=== PATIENT | male | born 1950 | race Caucasian/White ===

== ENCOUNTER → 2016-06-14 | Outpatient (CLI) | payer OTHER ==
[~2016-06-14] MED LIST: ASCO500T3 PO; ASPI1TAB83 PO; LEVO75TA PO; LISI-461 PO; MULT-506 PO; NITR0.4S UT; PLV75 PO; ROSU40TA PO; VITA1TAB7 PO
[2016-06-14 13:32] LABS: ALT/SGPT 48 U/L (12-78); AST/SGOT 27 U/L (15-37); BLOOD UREA NITROGEN 17 mg/dl (7-18); BUN/CREATININE RATIO 14.2 (10-20); CALCIUM 8.6 mg/dl (8.5-10.1); CARBON DIOXIDE 27 mmol/L (21-32); CHLORIDE 108 mmol/L (98-107); GLUCOSE 101 mg/dl (70-99); POTASSIUM 4.7 mmol/L (3.5-5.1); SODIUM 142 mmol/L (136-145)
[2016-06-14 13:44] LABS: CHOLESTEROL 106 mg/dl (0-200); CHOLESTEROL/HDL RATIO 2.7; HDL CHOLESTEROL 40 mg/dl; LDL CHOLESTEROL CALCULATED 42 mg/dl; TRIGLYCERIDES 118 mg/dl (0-150); VERY LOW DENSITY LIPOPROT CALC 24 mg/dl
== END | disposition home or self-care (01) ==
LOC: C.LABMFLN 07:47
PROVIDERS: ATTEND Family Medicine
DX: E03.9 Hypothyroidism, unspecified (principal); E78.00 Pure hypercholesterolemia, unspecified; I10 Essential (primary) hypertension

== ENCOUNTER → 2016-12-30 | Outpatient (CLI) | payer OTHER, BC ==
[2016-12-30 13:34] LABS: AST/SGOT 20 U/L (15-37); BLOOD UREA NITROGEN 16 mg/dl (7-18); BUN/CREATININE RATIO 14.1 (10-20); CALCIUM 8.8 mg/dl (8.5-10.1); CARBON DIOXIDE 26 mmol/L (21-32); CHLORIDE 109 mmol/L (98-107); GLUCOSE 98 mg/dl (70-99); POTASSIUM 4.1 mmol/L (3.5-5.1); SODIUM 140 mmol/L (136-145)
[2016-12-30 13:44] LABS: ALT/SGPT 38 U/L (12-78); CHOLESTEROL 99 mg/dl (0-200); CHOLESTEROL/HDL RATIO 2.5; HDL CHOLESTEROL 40 mg/dl; LDL CHOLESTEROL CALCULATED 41 mg/dl; TRIGLYCERIDES 91 mg/dl (0-150); VERY LOW DENSITY LIPOPROT CALC 18 mg/dl
== END | disposition home or self-care (01) ==
LOC: C.LABMFLN 07:37
PROVIDERS: ATTEND Family Medicine
DX: E03.9 Hypothyroidism, unspecified (principal); E78.00 Pure hypercholesterolemia, unspecified; I10 Essential (primary) hypertension

== ENCOUNTER → 2017-02-15 | Outpatient (CLI) | payer OTHER, BC ==
[2017-02-15 18:02] LABS: URINE APPEARANCE CLEAR (CLEAR); URINE BILIRUBIN NEG (NEG); URINE COLOR DK YELLOW; URINE NITRITE NEG (NEG); URINE PH 6.5 (4.5-7.5); URINE SPECIFIC GRAVITY 1.024 (1.000-1.030); UROBILINOGEN NEG (NEG)
[2017-02-15 18:04] LABS: MANUAL MICROSCOPIC REQUIRED? NO; REVIEW REQ? NO
[2017-02-15 18:17] LABS: BASO % 0.2 %; BASO ABS # 0.02 K/uL (0-0.2); COMPLETE YES; EOS % 1.1 %; HEMATOCRIT 44.2 % (42-52); IG% 0.2 %; LYMPH % 28.6 %; LYMPH ABS # 2.31 K/uL (1.2-3.4); MEAN CELL VOLUME 91.3 fL (80-100); MEAN CORPUSCULAR HEMOGLOBIN 31.2 pg (25-34); MEAN CORPUSCULAR HGB CONC 34.2 g/dl (32-36); MEAN PLATELET VOLUME 9.9 fL (7.4-10.4); MONO % 12.4 %; NEUT % 57.5 %; PLATELET COUNT 237 K/uL (130-400); RED BLOOD COUNT 4.84 M/uL (4.7-6.1); WHITE BLOOD COUNT 8.08 K/uL (4.8-10.8)
[2017-02-15 18:21] LABS: PROTHROMBIN TIME (PATIENT) 10.4 SECONDS (9.0-12.0)
[2017-02-15 18:33] LABS: ALT/SGPT 50 U/L (12-78); AST/SGOT 26 U/L (15-37); BLOOD UREA NITROGEN 14 mg/dl (7-18); BUN/CREATININE RATIO 12.9 (10-20); CALCIUM 8.8 mg/dl (8.5-10.1); CARBON DIOXIDE 29 mmol/L (21-32); CHLORIDE 108 mmol/L (98-107); GLUCOSE 94 mg/dl (70-99); POTASSIUM 4.4 mmol/L (3.5-5.1); SODIUM 141 mmol/L (136-145)
[2017-02-15 18:35] LABS: ALB/GLOB RATIO 1.1 (0.9-2); ALKALINE PHOSPHATASE 75 U/L (45-117)
--- NOTE | 2017-02-24 07:17 | CODING QUERY MEDICAL NECESSITY ---
CQSUPPORTING DIAGNOSIS NEEDED A supporting diagnosis is required for the test/procedure performed on this patient in order for us to be reimbursed by the patient's insurance. Please provide a supporting diagnosis for the following test/procedure listed below next to the test name along with your signature. *If there is no additional diagnosis for this patient that would support the following test/procedure please document that below next to the test/procedure. Test(s)/Procedure(s) that require a supporting diagnosis: DOS 02/15/17 COMPLETE BLOOD COUNT Provider Signature: Date: Thank you Kamila Monique [facility] Information Management Once completed, please kindly fax back to [phone] For questions please call [phone]
== END | disposition home or self-care (01) ==
LOC: C.LABMFLN 14:53
PROVIDERS: ATTEND Family Medicine
DX: M16.12 Unilateral primary osteoarthritis, left hip (principal)

== ENCOUNTER → 2017-06-06 | Outpatient (CLI) | payer OTHER, BC ==
[2017-06-06 14:17] LABS: ALBUMIN 3.8 gm/dl (3.4-5.0); ALT/SGPT 42 U/L (12-78); AST/SGOT 24 U/L (15-37); BLOOD UREA NITROGEN 15 mg/dl (7-18); CALCIUM 8.8 mg/dl (8.5-10.1); CARBON DIOXIDE 28 mmol/L (21-32); CREATININE 1.18 mg/dl (0.60-1.40); GLUCOSE 103 mg/dl (70-99); POTASSIUM 3.9 mmol/L (3.5-5.1); SODIUM 140 mmol/L (136-145)
[2017-06-06 14:28] LABS: ALKALINE PHOSPHATASE 85 U/L (45-117); CHOLESTEROL 116 mg/dl (0-200); LDL CHOLESTEROL CALCULATED 59 mg/dl; TOTAL PROTEIN 7.5 gm/dl (6.4-8.2)
== END | disposition home or self-care (01) ==
LOC: C.LABMFLN 08:53
PROVIDERS: ATTEND Family Medicine
DX: E03.9 Hypothyroidism, unspecified (principal); E78.00 Pure hypercholesterolemia, unspecified; I25.10 Atherosclerotic heart disease of native coronary artery without angina pectoris; I10 Essential (primary) hypertension

== ENCOUNTER → 2017-12-26 | Outpatient (CLI) | payer OTHER, BC ==
[2017-12-26 13:44] LABS: ALBUMIN 3.8 gm/dl (3.4-5.0); ALKALINE PHOSPHATASE 81 U/L (45-117); ALT/SGPT 51 U/L (12-78); AST/SGOT 30 U/L (15-37); BLOOD UREA NITROGEN 14 mg/dl (7-18); CALCIUM 8.4 mg/dl (8.5-10.1); CARBON DIOXIDE 26 mmol/L (21-32); CHOLESTEROL 104 mg/dl (0-200); CREATININE 1.19 mg/dl (0.60-1.40); GLUCOSE 95 mg/dl (70-99); LDL CHOLESTEROL CALCULATED 51 mg/dl; POTASSIUM 3.9 mmol/L (3.5-5.1); SODIUM 138 mmol/L (136-145); TOTAL PROTEIN 7.3 gm/dl (6.4-8.2)
== END | disposition home or self-care (01) ==
LOC: C.LABMFLN 09:28
PROVIDERS: ATTEND Family Medicine
DX: E03.9 Hypothyroidism, unspecified (principal); E78.00 Pure hypercholesterolemia, unspecified; K21.9 Gastro-esophageal reflux disease without esophagitis; I25.10 Atherosclerotic heart disease of native coronary artery without angina pectoris; Z12.5 Encounter for screening for malignant neoplasm of prostate

== ENCOUNTER 2020-12-12 14:46 | Inpatient (IN) ==
--- NOTE | 2020-12-12 14:49 | Emergency Department Note ---
Impression & Plan Non-ST elevation (NSTEMI) myocardial infarction, Chest tightness ED Provider Note NAME: ANTHONY KAMARA AGE: 70 SEX: M : 1950 ARRIVES VIA: Ambulance INFORMANT: Patient, ED PROVIDER(S): Steffen Latif MD Chief Complaint: Chest tightness HPI: Patient does present with concern for chest tightness that began around 1230. The patient states that he was out riding a bike he been out for approximately 30 minutes and had diffuse chest tightness. The patient has stopped riding his bike and gotten up to walk and hope that it would dissipate. The patient sat on ground approximate hour thereafter was picked up by center motorcycle but he still had pain and they called the ambulance. Patient does have some pleuritic discomfort. The patient does have a known history of CAD with a history of stents. The patient denies any URI type symptoms. Patient did receive aspirin and Zofran in route. The patient had trialed 3 nitro prior to arrival. The patient does not believe that this much improved her symptoms other than the nausea. Patient denies any abdominal pain. The patient denies any lower extremity swelling history of DVT or PE. The patient does have a history of ICH back in 2007. Patient denies any numbness tingling or focal weakness. Patient denies any recent trauma or falls. Of note the patient was riding at peak time of day when it was very hot out. Patient states that he has done this before and rode 12 miles last week without any issues. ROS: See HPI for pertinent positives and negatives. A total of 10 systems were reviewed and otherwise negative. Past medical history: See below Surgical history: See below Social history: See below Physical Exam: GENERAL: Wearing glasses, mildly uncomfortable in appearance. EYE EXAM: Normal conjunctiva. PERRL, no anisocoria and EOM's grossly intact w/o pain. NECK: Supple, no nuchal rigidity, no adenopathy, non-tender. No signs of meningismus. LUNGS: Clear to auscultation. Normal chest wall mechanics. HEART: NSR, no MRG. ABDOMEN: Abdomen soft, non-tender, normo-active bowel sounds, no masses, no rebound or guarding. BACK: No CVA TTP. SKIN: No rashes and no bruising. UPPER EXTREMITIES: Upper extremities are grossly normal. LOWER EXTREMITIES: Grossly normal, no edema. NEURO EXAM: A&O x3, cranial nerves II-XII grossly intact, normal speech, moves all 4 extremities on command w/o issue. Differential diagnoses: Cardiac ischemia, aortic dissection, pulmonary embolism, pneumothorax, pneumonia, pericarditis, myocarditis, esophageal rupture, GERD, cholecystitis, pancreatitis, musculoskeletal, as well as other pathologies. Course: Patient was seen and evaluated the bedside. Full history physical exam was performed. EKG interpreted by me Normal sinus rhythm, rate of 72, no obvious ST changes, likely right bundle b ranch block pattern. Depression noted potentially in V4 although this is localized to a single beat. T wave inversion in aVF. The bundle branch block is new, to inversion in lead III is old from comparison EKG September 19, 2013. Repeat EKG normal sinus rhythm, rate of 72, wide QRS, right bundle branch block pattern. T WI in lead III. No obvious change from EKG completed earlier during the patient stay. Imaging Studies: See below Cardiac monitoring: An order was placed for continuous cardiac monitoring. The monitor shows a rate of 72 with sinus rhythm. MDM: Patient did present with concern for chest tightness. Patient did have blood work completed along with an EKG. Patient's EKG did not show acute STEMI criteria. The patient was ordered additional medications and a CT angiography of the chest. Patient CT angio was negative. Patient did have a positive troponin so heparin was ordered. Patient did have improvement the patient's symptoms. I did speak the on-call hospitalist and the patient was admitted by Dr. Vincent. Critical Care: I have personally spent 57 minutes of critical care time in direct management of this patient. This includes bedside care, interpretation of diagnostic studies, and testing, discussion with consultants, patient, and family members, and other require inpatient management activities. This 57 minutes is in excess of all separately billable procedures. Past Med/Surg History Medical History (Updated 12/12/20 @ 18:52 by Steffen Latif MD) Benign essential hypertension CAD in [place] artery (09/18/13) GERD without esophagitis Hypercholesterolemia Hypothyroidism Subarachnoid hemorrhage Varicose vein of leg Surgical History History of inguinal hernia repair History of throat surgery History of tonsillectomy Hx of carpal tunnel repair S/P coronary artery stent placement Family History Father Heart disease Brother Heart disease Social History Smoking Status: Never smoker Second Hand Exposure: No; Hx Alcohol Use: No Hx Substance Use: No Preferred Language: Iraqi Communication Ability: Effective Hearing Ability: Normal Carpenter Repairer Required: No marital status: Current Living Situation Comment: and Son current occupational status: retired Feels Safe at Home: Yes Childhood Exposure to Second-Hand Smoke: Yes Dental Care, Regularly: No Physical Activity Frequency: 3-4 Times per Week Seatbelt Use: always Sunscreen Use: Yes Allergies Allergies Allergy/AdvReac Type Severity Reaction Status Date / Time niacin AdvReac Mild Flushing Verified 12/12/20 16:35 Home Meds Home Medications Medication Instructions Recorded Confirmed aspirin 81 mg tablet,delayed 162 mg PO PM tab 12/08/20 12/12/20 release coenzyme Q10 100 mg capsule (Co 100 mg PO PM 12/12/20 12/12/20 Q-10) levothyroxine 75 mcg tablet 75 mcg PO QAM 12/12/20 12/12/20 lisinopril 40 mg tablet 40 mg PO PM 12/12/20 12/12/20 pantoprazole 40 mg tablet,delayed 40 mg PO QAM 12/12/20 12/12/20 release rosuvastatin 40 mg tablet 40 mg PO PM 12/12/20 12/12/20 Previous Rx's Medication Instructions Recorded sildenafil (pulm.hypertension) 20 20 mg PO DAILY PRN #30 tab 03/04/20 mg tablet nitroglycerin 0.4 mg sublingual 0.4 mg SL Q5M PRN #25 tab 06/03/20 tablet Results & Data (ED) Vital Signs Vital Signs - 24 hr 12/12/20 14:52 12/12/20 14:53 12/12/20 15:00 Temperature 36.8 C Temperature Source Oral Pulse Rate 69 65 63 Pulse Rate from SpO2 Sensor Pulse Rhythm Regular Pulse Strength Normal Respiratory Rate 21 22 23 Respiratory Effort / Characteristics Non-Labored Short of Breath Respiratory Depth Normal Respiratory Pattern Regular Blood Pressure 130/73 128/67 128/67 Blood Pressure Mean 92 87 87 Pulse Oximetry 97 Oxygen Delivery Method Room Air Oxygen Flow Rate Sepsis Recent Fever Within 48 Hours No Sepsis New/Unexplained Change in Mental Status N/A Sepsis Action Taken by Nursing No Action Required 12/12/20 15:07 12/12/20 15:30 12/12/20 16:00 Temperature Temperature Source Pulse Rate 75 74 Pulse Rate from SpO2 Sensor 74 74 Pulse Rhythm Pulse Strength Respiratory Rate 20 18 Respiratory Effort / Characteristics Respiratory Depth Respiratory Pattern Blood Pressure 126/71 136/79 Blood Pressure Mean 89 98 Pulse Oximetry 96 100 100 Oxygen Delivery Method Room Air Oxygen Flow Rate 0 Sepsis Recent Fever Within 48 Hours Sepsis New/Unexplained Change in Mental Status Sepsis Action Taken by [facility] Medications Current Medication List: was personally reviewed by me Laboratory Data Attestation: I reviewed the patient's lab results. Result diagrams: 12/12/20 14:30 12/12/20 14:30 Lab Results 12/12/20 12/12/20 12/12/20 Range/Units 14:30 14:30 17:00 WBC 11.17 H (4.8-10.8) K/uL RBC 4.77 (4.7-6.1) M/uL Hgb 14.7 (14.0-18.0) g/dL Hct 43.6 (42-52) % MCV 91.4 (80-100) fL MCH 30.8 (25-34) pg MCHC 33.7 (32-36) g/dL RDW Std Deviation 43.2 (36.4-46.3) fL RDW Coeff of Mari 12.8 (11.5-14.5) % Plt Count 229 (130-400) K/uL MPV 10.4 (7.4-10.4) fL Immature Gran % (Auto) 0.2 % Neut % (Auto) 73.7 % Lymph % (Auto) 13.0 % [place] % (Auto) 12.9 % Eos % (Auto) 0.1 % Baso % (Auto) 0.1 % Neut # (Auto) 8.24 H (1.4-6.5) K/uL Lymph # (Auto) 1.45 (1.2-3.4) K/uL [place] # (Auto) 1.44 H (0.11-0.59) K/uL Eos # (Auto) 0.01 (0-0.5) K/uL Baso # (Auto) 0.01 (0-0.2) K/uL Immature Gran # (Auto) 0.02 (0.00-0.02) K/uL APTT 25.5 (21.0-31.0) Seconds PTT Ratio 1.0 Sodium 138 (136-145) mmol/L Potassium 3.8 (3.5-5.1) mmol/L Chloride 111 H (98-107) mmol/L Carbon Dioxide 20 L (21-32) mmol/L Anion Gap 7.0 (3-11) BUN 20 H (7-18) mg/dl Creatinine 1.27 (0.6-1.4) mg/dl Est Cr Clr Drug Dosing 63.1 ml/min Est GFR ( Amer) 65.9 ml/min Est GFR (Non-Af Amer) 56.9 ml/min BUN/Creatinine Ratio 15.7 (10-20) Glucose 96 (70-99) mg/dl Calcium 8.6 (8.5-10.1) mg/dl Magnesium 1.8 (1.8-2.4) mg/dl Total Bilirubin 0.5 (0.2-1) mg/dl AST 24 (15-37) U/L ALT 35 (12-78) U/L Alkaline Phosphatase 62 (45-117) U/L Total Creatine Kinase 184 (39-308) U/L Troponin I 0.236 H* (0-0.045) ng/ml Total Protein 6.7 (6.4-8.2) gm/dl Albumin 3.6 (3.4-5.0) gm/dl Globulin 3.1 (2.5-4.0) gm/dl Albumin/Globulin Ratio 1.2 (0.9-2) TSH 2.300 (0.300-4.500) uIu/ml COVID-19 Eval Order SARS-CoV-2 (PCR) (Negative) 12/12/20 12/12/20 Range/Units 17:15 17:15 WBC (4.8-10.8) K/uL RBC (4.7-6.1) M/uL Hgb (14.0-18.0) g/dL Hct (42-52) % MCV (80-100) fL MCH (25-34) pg MCHC (32-36) g/dL RDW Std Deviation (36.4-46.3) fL RDW Coeff of Mari (11.5-14.5) % Plt Count (130-400) K/uL MPV (7.4-10.4) fL Immature Gran % (Auto) % Neut % (Auto) % Lymph % (Auto) % [place] % (Auto) % Eos % (Auto) % Baso % (Auto) % Neut # (Auto) (1.4-6.5) K/uL Lymph # (Auto) (1.2-3.4) K/uL [place] # (Auto) (0.11-0.59) K/uL Eos # (Auto) (0-0.5) K/uL Baso # (Auto) (0-0.2) K/uL Immature Gran # (Auto) (0.00-0.02) K/uL APTT (21.0-31.0) Seconds PTT Ratio Sodium (136-145) mmol/L Potassium (3.5-5.1) mmol/L Chloride (98-107) mmol/L Carbon Dioxide (21-32) mmol/L Anion Gap (3-11) BUN (7-18) mg/dl Creatinine (0.6-1.4) mg/dl Est Cr Clr Drug Dosing ml/min Est GFR ( Amer) ml/min Est GFR (Non-Af Amer) ml/min BUN/Creatinine Ratio (10-20) Glucose (70-99) mg/dl Calcium (8.5-10.1) mg/dl Magnesium (1.8-2.4) mg/dl Total Bilirubin (0.2-1) mg/dl AST (15-37) U/L ALT (12-78) U/L Alkaline Phosphatase (45-117) U/L Total Creatine Kinase (39-308) U/L Troponin I (0-0.045) ng/ml Total Protein (6.4-8.2) gm/dl Albumin (3.4-5.0) gm/dl Globulin (2.5-4.0) gm/dl Albumin/Globulin Ratio (0.9-2) TSH (0.300-4.500) uIu/ml COVID-19 Eval Order Covid19 at [facility] SARS-CoV-2 (PCR) NEGATIVE (Negative) Administered Medications Heparin Sodium/Dextrose (Heparin Sodium/Dextrose) 25,000 units in 500 mls @ 0.02 mls/hr IV [facility]; Protocol Stop: 01/11/21 16:29 Last Admin: 12/12/20 17:18 Dose: Not Given Documented by: [id number] Heparin Sodium/Dextrose (Heparin Sodium/Dextrose) 25,000 units in 500 mls @ 0.02 mls/hr IV .[facility]; Protocol Stop: 01/11/21 16:29 Last Admin: 12/12/20 17:17 Dose: 1,000 units/hr, 20 mls/hr Documented by: [id number] Cosigned by: [id number] Discontinued Medications Heparin Sodium (Porcine) (Heparin Sod (Porcine) 1000 Unit/Ml) 1 units IV NOW ONE Stop: 12/12/20 16:24 Last Admin: 12/12/20 17:18 Dose: 4,000 units Documented by: [id number] Cosigned by: [id number] Sodium Chloride (Nss 1000ml) 1,000 mls @ 999 mls/hr IV .Q1H1M BRIANNA Stop: 12/12/20 16:15 Last Infusion: 12/12/20 16:16 Dose: 0 mls/hr Documented by: [id number] Admin: 12/12/20 15:15 Dose: 999 mls/hr Documented by: [id number] Lorazepam (Ativan) 0.5 mg in 1 mls @ 1 mls/min IV NOW STA Stop: 12/12/20 15:46 Last Admin: 12/12/20 15:55 Dose: 1 mls/min Documented by: [id number] Ioversol (Optiray 320 125ml) 119 ml IV ONCE ONE Stop: 12/12/20 16:13 Last Admin: 12/12/20 16:14 Dose: 119 ml Documented by: [id number] Morphine Sulfate (Morphine Sulfate 2 Mg/Ml Carp) 2 mg IV NOW STA Stop: 12/12/20 16:19 Last Admin: 12/12/20 17:01 Dose: 2 mg Documented by: [id number] Nitroglycerin (Nitroglycerin 2% Ointment 30gm Tube) 1 inch EXT NOW STA Stop: 12/12/20 16:08 Last Admin: 12/12/20 16:59 Dose: 1 inch Documented by: [id number] Ondansetron HCl (Ondansetron Inj 2 Mg/Ml 2 Ml Vial) 4 mg IV NOW STA Stop: 12/12/20 15:07 Last Admin: 12/12/20 15:15 Dose: 4 mg Documented by: [id number] Imaging Data Radiologist's Impression: Chest CTA 12/12/20 15:01 CHEST CTA for PULMONARY ARTERIES CT DOSE: 483.15 mGy.cm HISTORY: Atypical chest pain. Chest tightness. Shortness of breath. TECHNIQUE: Multiaxial CT images of the chest were performed following the intravenous administration of contrast to evaluate the pulmonary arteries. Maximal intensity projection images were also obtained. A dose lowering technique was utilized adhering to the principles of ALARA. COMPARISON STUDY: None. FINDINGS: Limited views of the upper abdomen demonstrate a normal liver, spleen, and adrenal glands. Normal esophagus. No mediastinal or hilar lymphadenopathy. No pleural or pericardial effusions. Normal caliber thoracic aorta with no evidence for dissection. Calcified plaque within the left coronary artery. No filling defects within the pulmonary arteries to suggest a pulmonary embolus. No fractures within the visualized osseous structures. No pneumothorax. The central airways are patent. Mild dependent changes seen within the lungs posteriorly. No focal lung consolidations to suggest pneumonia. IMPRESSION: No evidence for pulmonary embolus. ACT 112: Negative or not required by law. Electronically signed by: Thomas Sanders M.D. 12/12/2020 4:39 PM Chest X-Ray 12/12/20 15:01 XR chest 1V portable HISTORY: weakness COMPARISON: None. FINDINGS: No pneumothorax. No pleural effusions. No focal lung consolidations to suggest pneumonia. No evidence for pulmonary edema. The cardiac silhouette is mildly enlarged. IMPRESSION: Mild cardiomegaly. Otherwise, no acute process within the chest. ACT 112: Negative or not required by law. Electronically signed by: Thomas Sanders M.D. 12/12/2020 3:57 PM Discharge Plan Visit Data Chief Complaint: Chest Pain ED Provider: Steffen Latif Discharge Problem: Non-ST elevation (NSTEMI) myocardial infarction, Chest tightness Forms Stand Alone Forms: [employer] Prescriptions Prescriptions: No Action sildenafil (pulm.hypertension) 20 mg tablet 20 mg PO DAILY PRN (Reason: sexual activity) Qty: 30 RF: 11 nitroglycerin 0.4 mg tablet, sublingual 0.4 mg SL Q5M PRN (Reason: chest pain) Qty: 25 RF: 3 aspirin 81 mg tablet,delayed release (DR/EC) 162 mg PO PM RF: 0 levothyroxine 75 mcg tablet 75 mcg PO QAM RF: 0 pantoprazole 40 mg tablet,delayed release (DR/EC) 40 mg PO QAM RF: 0 lisinopril 40 mg tablet 40 mg PO PM RF: 0 coenzyme Q10 [Co Q-10] 100 mg capsule 100 mg PO PM RF: 0 rosuvastatin 40 mg tablet 40 mg PO PM RF: 0 Referrals Referrals: Rodolfo Jackson MD [Primary Care Provider] -
[2020-12-12] MEDS ORDERED: ONDANSETRON INJ 2 MG/ML 2 ML VIAL IV STA (15:06)
[2020-12-12] MEDS ORDERED: SODIUM CHLORIDE 0.9% 1000ML 1,000 ML IV SCH ×2 (15:15→20:51)
[2020-12-12 15:25] LABS: Basophils # (auto) 0.01 K/uL (0-0.2); Basophils % (auto) 0.1 %; Eosinophils # (auto) 0.01 K/uL (0-0.5); Eosinophils % (auto) 0.1 %; Hematocrit (blood only) 43.6 % (42-52); Hemoglobin 14.7 g/dL (14.0-18.0); Immature Granulocytes # (auto) 0.02 K/uL (0.00-0.02); Immature Granulocytes % (auto) 0.2 %; Lymphocytes # (auto) 1.45 K/uL (1.2-3.4); Mean Corpuscular Hemoglobin 30.8 pg (25-34); Mean Corpuscular Hgb Conc 33.7 g/dL (32-36); Mean Corpuscular Volume 91.4 fL (80-100); Mean Platelet Volume 10.4 fL (7.4-10.4); Monocytes # (auto) 1.44 K/uL (0.11-0.59); Monocytes % (auto) 12.9 %; Neutrophils # (auto) 8.24 K/uL (1.4-6.5); Neutrophils % (auto) 73.7 %; Platelet Count 229 K/uL (130-400); RDW Coefficient of Variation 12.8 % (11.5-14.5); RDW Standard Deviation 43.2 fL (36.4-46.3); Red Blood Count 4.77 M/uL (4.7-6.1); White Blood Count 11.17 K/uL (4.8-10.8)
[2020-12-12 15:43] LABS: Albumin Level 3.6 gm/dl (3.4-5.0); BUN Creatinine Ratio 15.7 (10-20); Calcium 8.6 mg/dl (8.5-10.1); Creatinine Clr Calc Pharmacy 63.1 ml/min; Est GFR (African American) 65.9 ml/min; Est GFR (Non-African American) 56.9 ml/min; Magnesium 1.8 mg/dl (1.8-2.4); Potassium 3.8 mmol/L (3.5-5.1)
[2020-12-12] MEDS ORDERED: LORazepam 0.5 MG/1 ML VIAL IV STA (15:45)
--- NOTE | 2020-12-12 15:59 | XRay Report ---
XR chest 1V portable HISTORY: weakness COMPARISON: None. FINDINGS: No pneumothorax. No pleural effusions. No focal lung consolidations to suggest pneumonia. N o evidence for pulmonary edema. The cardiac silhouette is mildly enlarged. IMPRESSION: Mild cardiomegaly. Otherwise, no acute process within the chest. ACT 112: Negative or not required by law. Electronically signed by: Thomas Sanders M.D. 12/12/2020 3:57 PM
[2020-12-12 16:06] LABS: Albumin Globulin Ratio 1.2 (0.9-2); Bilirubin,Total 0.5 mg/dl (0.2-1); Globulin 3.1 gm/dl (2.5-4.0); Thyroid Stimulating Hormone 2.3 uIu/ml (0.300-4.500); Total Protein 6.7 gm/dl (6.4-8.2); Troponin I 0.236 ng/ml (0-0.045)
[2020-12-12] MEDS ORDERED: NITROGLYCERIN 2% OINTMENT 30GM TUBE EXT STA (16:07)
[2020-12-12] MEDS ORDERED: Heparin IV Adult Wt-Based Standard *NO* Bolus Protocol ONE (16:07)
[2020-12-12] MEDS ORDERED: Heparin IV Adult Wt-Based Low-Dose WITH Bolus Protocol STA (16:07)
[2020-12-12] MEDS ORDERED: OPTIRAY 320 125ml IV ONE (16:12)
[2020-12-12] MEDS ORDERED: MoRPHine SULFATE 2 MG/ML CARP IV STA (16:18)
[2020-12-12] MEDS ORDERED: HEPARIN SOD (PORCINE) 1000 UNIT/ML IV ONE (16:23)
[2020-12-12] MEDS ORDERED: HEPARIN SODIUM/DEXTROSE 25,000 UNITS/500 ML BAG IV SCH ×2 (16:30)
--- NOTE | 2020-12-12 16:40 | CT Scan Report ---
CHEST CTA for PULMONARY ARTERIES CT DOSE: 483.15 mGy.cm HISTORY: Atypical chest pain. Chest tightness. Shortness of breath. TECHNIQUE: Multiaxial CT images of the chest were performed following the intravenous administration of contrast to evaluate the pulmonary arteries. Maximal intensity projection images were also obtaine d. A dose lowering technique was utilized adhering to the principles of ALARA. COMPARISON STUDY: None. FINDINGS: Limited views of the upper abdomen demonstrate a normal liver, spleen, and adrenal glands. Normal esophagus. No mediastinal or hilar lymphadenopathy. No pleural or pericardial effusions. Renetta l caliber thoracic aorta with no evidence for dissection. Calcified plaque within the left coronary a rtery. No filling defects within the pulmonary arteries to suggest a pulmonary embolus. No fractures within the visualized osseous structures. No pneumothorax. The central airways are patent. Mild depen dent changes seen within the lungs posteriorly. No focal lung consolidations to suggest pneumonia. IMPRESSION: No evidence for pulmonary embolus. ACT 112: Negative or not required by law. Electronically signed by: Thomas Sanders M.D. 12/12/2020 4:39 PM
--- NOTE | 2020-12-12 17:35 | History & Physical Report ---
Date of Service December 12, 2020 Assessment & Plan (1) Non-ST elevation (NSTEMI) myocardial infarction: Plan: Known h/o CAD, symptoms, elevated troponin, etc all highly suggestive of NSTEMI. By the conclusion of my admission assessment he was chest tightness/pain free. Plan - * heparin drip, low-dose protocol * topical nitro 1" q6h * HRs are 70s and 80s at presentation - will attempt low-dose beta lucía - metoprolol 12.5mg BID; can always d/c if too bradycardic with such (records indicate h/o bradycardia with beta blockers) * continue lisinopril but lower to 20mg daily given the addition of metoprolol and topical nitrates * continue aspirin * continue statin * check lipids and a1c in am * serial trops; draw 2nd troponin now * telemetry * echo in am * consult cardiology, Dr Colten Avila - plan of care discussed IF ANY RECURRENT CHEST PAIN THIS EVENING THEN ACTIVATE HEART ALERT FOR EMERGENT HEART CATHETERIZATION Of note - CTA chest without PE, dissection, aneurysm, etc. (2) CAD in [place] artery: Plan: Previous heart catheterization was in 08/2013. This demonstrated a 70% LAD lesion, 30% LCx lesion and a 30% RCA stenosis. He underwent stent to the LAD lesion. Now with NSTEMI - see above. (3) HTN (hypertension): Plan: Lower lisinopril dose to 20mg daily to allow other agents to be added. Adding topical nitrates. Add low-dose BB - metoprolol 12.5mg BID. (4) Hypercholesterolemia: Plan: Check lipids in am. Continue statin. (5) Hypothyroidism: Plan: TSH wnl. Continue synthroid. (6) GERD without esophagitis: Plan: Continue PPI. (7) History of subarachnoid hemorrhage: Plan: Spontaneous. Occurred after he had forcibly sneezed. Did not require surgical intervention. Benefits of systemic heparin for his NSTEMI outweigh the very small risk of re- development of a spontaneous SAH. (8) RBBB: Plan: New. As seen on today's EKG. Telemetry monitoring. (9) Dizziness: Plan: Probable hypotension due to NSTEMI in the setting of strenuous activity in the heat. The dizziness was then exacerbated by his SL nitro use which likely worsened his hypotension. Right-sided infarction? Doubt arrhythmia but can't rule it out entirely. Plan: FEN - allow AHA diet tonight. NS hydration x 1 liter then saline lock. Labs in am. Son and his were updated at bedside. Care d/w Dr Colten Avila, cardiology. History of Present Illness Chief Complaint: shortness of breath, chest tightness Primary Care Provider: Rodolfo Jackson MD Very pleasant 70yo male with known CAD, s/p LAD stent in August 2013, hyperlipidemia, HTN, and hypothyroidism presents via EMS with 60+ minutes of chest tightness, shortness of breath, bilateral arm numbness, nausea, dizziness, and anxiety. Patient states he is an avid bike rider and was out on some bike trails at [place] with his son. There was a steep incline to reach a trail and he decided to get off his bike and walk up the hill. While he was walking he states he suddenly lost his energy, then developed chest tightness over the sternal region, significant shortness of breath, and felt dizzy. The symptoms persisted and he sat on the ground. He fortunately had his bottle of nitroglycerin with him and took 3 SL nitros. This did NOT relieve any of his symptoms. At its peak the chest tightness was 9/10 on a pain scale. Following the nitroglycerin he felt more dizzy than prior. He sat on the ground in that location for about 30 minutes and his son ultimately caught back up with him. His son called 911. While waiting for EMS his symptoms persisted. About 30 minutes later EMS finally got to him and brought him to [facility]. In the ambulance he was given IV fluids and aspirin. Then, upon arrival at [facility], additional nitrates in the form of nitropaste was given along with morphine and ativan. Troponin was elevated, and he was started on a heparin drip. During my assessment he was initially a 2/10 in terms of chest tightness, and by the time I examined him he was 0/10. Patient states that up until today he has otherwise been feeling well. Recent prior bike rides were not limited in any way - specifically he had no chest pain or dyspnea during prior bike excursions. Patient denies prior h/o CA. In 2013 he had a stress test due to severe fatigue. His stress was positive which prompted a heart cath. Heart cath showed a 70% LAD lesion, and 30% lesions in the RCA and left circumflex. LAD stent was placed at that time. Last stress test was in 2019 and was negative for ischemia. Of note - patient is fully vaccinated against COVID-19. Allergies Allergy/AdvReac Type Severity Reaction Status Date / Time niacin AdvReac Mild Flushing Verified 12/12/20 16:35 Home Medications Medication Instructions Recorded Confirmed Type sildenafil (pulm.hypertension) 20 20 mg PO DAILY PRN #30 tab 03/04/20 12/12/20 Rx mg tablet nitroglycerin 0.4 mg sublingual 0.4 mg SL Q5M PRN #25 tab 06/03/20 12/12/20 Rx tablet aspirin 81 mg tablet,delayed 162 mg PO PM tab 12/08/20 12/12/20 History release coenzyme Q10 100 mg capsule (Co 100 mg PO PM 12/12/20 12/12/20 History Q-10) levothyroxine 75 mcg tablet 75 mcg PO QAM 12/12/20 12/12/20 History lisinopril 40 mg tablet 40 mg PO PM 12/12/20 12/12/20 History pantoprazole 40 mg tablet,delayed 40 mg PO QAM 12/12/20 12/12/20 History release rosuvastatin 40 mg tablet 40 mg PO PM 12/12/20 12/12/20 History Past Med/Surg History Medical History (Updated 12/12/20 @ 20:56 by Navdeep Vincent) Benign essential hypertension CAD in [place] artery (09/18/13) 70% LAD lesion, s/p stent; 30% LCx, 30% RCA GERD without esophagitis Hypercholesterolemia Hypothyroidism Subarachnoid hemorrhage 2007 - did not require neurosurgical intervention Varicose vein of leg Surgical History (Updated 12/12/20 @ 20:33 by Navdeep Vincent) History of inguinal hernia repair History of left hip replacement History of throat surgery UPPP History of tonsillectomy Hx of carpal tunnel repair S/P coronary artery stent placement Family History Father Heart disease Brother Heart disease Uncle Coronary heart disease Paternal uncles x 2 Social History (Updated 12/12/20 @ 20:34 by Navdeep Vincent) Smoking Status: Never smoker Second Hand Exposure: No; Hx Alcohol Use: No Hx Substance Use: No Preferred Language: Romansh Communication Ability: Effective Hearing Ability: Normal Senior Telecommunications Engineer Required: No Beliefs That Will Affect Care: None marital status: Current Living Situation: Spouse Current Living Situation Comment: and Son current occupational status: retired current occupation: worked as radiation therapist, 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 How many Children do You have: 2 Other Information That Helps Us Care for You: No Feels Safe at Home: Yes Safety Concerns: Feels Safe At This Time Childhood Exposure to Second-Hand Smoke: Yes Dental Care, Regularly: No Physical Activity Frequency: 3-4 Times per Week Seatbelt Use: always Sunscreen Use: Yes Assistive Devices: Glasses Review of Systems Constitutional: + fatigue and + weakness; no fever, no chills, no anorexia and no weight loss Eyes: no worsening vision Ear, Nose, Mouth, Throat: no nasal congestion and no sore throat no loss of taste or smell Respiratory: + dyspnea and + dyspnea on exertion; no cough Cardiovascular: as per Subjective / HPI, + chest pain, + chest pain at rest, + chest pain with activity and + radiating jaw, neck or arm pain; no orthopnea, no palpitations, no syncope and no edema Gastrointestinal: + nausea (had such in the ambulance ); no abdominal pain, no vomiting and no diarrhea/loose stools Genitourinary: no dysuria Integumentary: no rash Neurologic: + paresthesia (both arms during his chest tightness spell ) Psychiatric: no depression and no anxiety Endocrine: denies any diabetes Hematologic / Lymphatic: no easy bleeding Physical Exam Constitutional: well developed and well nourished; no acute distress and no altered mental status Eyes: PERRL, conjunctivae normal, anicteric sclerae ENMT: external ear and nose normal, oropharynx normal Ears: + unable to visualize TM (right - 2nd cerumen ); no TM abnormality (left) Neck: trachea midline, no thyromegaly Respiratory: normal respiratory effort, lungs clear to auscultation Cardiovascular: RRR, no murmur, no edema Heart Sounds: normal S1 and normal S2 Vessels: posterior tibial pulses present, dorsalis pedis pulses present and radial pulses present (symmetric b/l ); no JVD Chest (Breasts): Chest: normal inspection of chest Additional Comments: no reproducible chest wall pain Gastrointestinal (Abdomen): normal bowel sounds, soft, nontender, no hepatosplenomegaly Musculoskeletal: no cyanosis or clubbing, extremities motor strength 5/5 Skin: no rashes, warm and dry Neurologic: deep tendon reflexes 2+ bilaterally and moves all extremities Psychiatric: Orientation: alert and oriented x 3 Lymphatic: no cervical lymphadenopathy Results & Data Results & Data ([facility]) Vital Signs (Past 12 Hours) Vital Signs Temp Pulse Resp BP Pulse Ox 12/12/20 16:00 74 18 136/79 100 12/12/20 15:30 75 20 126/71 100 12/12/20 15:07 96 12/12/20 15:00 63 23 128/67 12/12/20 14:53 36.8 C 65 22 128/67 97 12/12/20 14:52 69 21 130/73 Laboratory Results Laboratory Results - last 24 hr 12/12/20 12/12/20 12/12/20 14:30 14:30 17:00 WBC 11.17 H RBC 4.77 Hgb 14.7 Hct 43.6 MCV 91.4 MCH 30.8 MCHC 33.7 RDW Std Deviation 43.2 RDW Coeff of Mari 12.8 Plt Count 229 MPV 10.4 Immature Gran % (Auto) 0.2 Neut % (Auto) 73.7 Lymph % (Auto) 13.0 [place] % (Auto) 12.9 Eos % (Auto) 0.1 Baso % (Auto) 0.1 Neut # (Auto) 8.24 H Lymph # (Auto) 1.45 [place] # (Auto) 1.44 H Eos # (Auto) 0.01 Baso # (Auto) 0.01 Immature Gran # (Auto) 0.02 APTT 25.5 PTT Ratio 1.0 Sodium 138 Potassium 3.8 Chloride 111 H Carbon Dioxide 20 L Anion Gap 7.0 BUN 20 H Creatinine 1.27 Est Cr Clr Drug Dosing 63.1 Est GFR ( Amer) 65.9 Est GFR (Non-Af Amer) 56.9 BUN/Creatinine Ratio 15.7 Glucose 96 Calcium 8.6 Magnesium 1.8 Total Bilirubin 0.5 AST 24 ALT 35 Alkaline Phosphatase 62 Total Creatine Kinase 184 Troponin I 0.236 H* Total Protein 6.7 Albumin 3.6 Globulin 3.1 Albumin/Globulin Ratio 1.2 TSH 2.300 COVID-19 Eval Order SARS-CoV-2 (PCR) 12/12/20 12/12/20 12/12/20 17:15 17:15 19:36 WBC RBC Hgb Hct MCV MCH MCHC RDW Std Deviation RDW Coeff of Mari Plt Count MPV Immature Gran % (Auto) Neut % (Auto) Lymph % (Auto) [place] % (Auto) Eos % (Auto) Baso % (Auto) Neut # (Auto) Lymph # (Auto) [place] # (Auto) Eos # (Auto) Baso # (Auto) Immature Gran # (Auto) APTT PTT Ratio Sodium Potassium Chloride Carbon Dioxide Anion Gap BUN Creatinine Est Cr Clr Drug Dosing Est GFR ( Amer) Est GFR (Non-Af Amer) BUN/Creatinine Ratio Glucose Calcium Magnesium Total Bilirubin AST ALT Alkaline Phosphatase Total Creatine Kinase Troponin I 6.440 H* Total Protein Albumin Globulin Albumin/Globulin Ratio TSH COVID-19 Eval Order Covid19 at [facility] SARS-CoV-2 (PCR) NEGATIVE Diagnostic Findings Chest CTA 12/12/20 15:01 CHEST CTA for PULMONARY ARTERIES CT DOSE: 483.15 mGy.cm HISTORY: Atypical chest pain. Chest tightness. Shortness of breath. TECHNIQUE: Multiaxial CT images of the chest were performed following the intravenous administration of contrast to evaluate the pulmonary arteries. Maximal intensity projection images were also obtained. A dose lowering technique was utilized adhering to the principles of ALARA. COMPARISON STUDY: None. FINDINGS: Limited views of the upper abdomen demonstrate a normal liver, spleen, and adrenal glands. Normal esophagus. No mediastinal or hilar lymphadenopathy. No pleural or pericardial effusions. Normal caliber thoracic aorta with no evidence for dissection. Calcified plaque within the left coronary artery. No filling defects within the pulmonary arteries to suggest a pulmonary embolus. No fractures within the visualized osseous structures. No pneumothorax. The central airways are patent. Mild dependent changes seen within the lungs posteriorly. No focal lung consolidations to suggest pneumonia. IMPRESSION: No evidence for pulmonary embolus. ACT 112: Negative or not required by law. Electronically signed by: Thomas Sanders M.D. 12/12/2020 4:39 PM Chest X-Ray 12/12/20 15:01 XR chest 1V portable HISTORY: weakness COMPARISON: None. FINDINGS: No pneumothorax. No pleural effusions. No focal lung consolidations to suggest pneumonia. No evidence for pulmonary edema. The cardiac silhouette is mildly enlarged. IMPRESSION: Mild cardiomegaly. Otherwise, no acute process within the chest. ACT 112: Negative or not required by law. Electronically signed by: Thomas Sanders M.D. 12/12/2020 3:57 PM EKG - my reading - NSR, RBBB, NS ST changes III, AVF Code Status & VTE Plan Code Status full code VTE Prophylaxis Plan VTE Prophylaxis will be ordered: Yes PG Care Time/CCT Total # of Minutes Spent Total Time Spent with Patient: Total time spent is greater than 50% in coordination of care (as documented) at patient's floor/unit and/or counseling patient: Coding Level of Care Code 00870 Initial Inpt Care Lvl 3 Diagnoses Non-ST elevation (NSTEMI) myocardial infarction I21.4 HTN (hypertension) I10 GERD without esophagitis K21.9 Hypercholesterolemia E78.00 Hypothyroidism E03.9 CAD in [place] artery I25.10 History of subarachnoid hemorrhage Z86.79 RBBB I45.10 Dizziness R42
[2020-12-12 17:42] LABS: Partial Thromboplastin Time 25.5 Seconds (21.0-31.0)
[2020-12-12] MEDS ORDERED: NITROGLYCERIN SL 0.4 MG/TAB TAB SL PRN (20:51)
[2020-12-12] MEDS ORDERED: ACETAMINOPHEN 325 MG TAB PO PRN (20:51)
[2020-12-12] MEDS ORDERED: ONDANSETRON INJ 2 MG/ML 2 ML VIAL IV PRN (20:51)
[2020-12-12] MEDS ORDERED: MoRPHine SULFATE 2 MG/ML CARP IV PRN (20:51)
[2020-12-12] MEDS ORDERED: ALUMINUM/MAGNESIUM SUSP 30 ML UDC PO PRN (20:51)
[2020-12-12] MEDS ORDERED: Heparin IV Adult Wt-Based Low-Dose *NO* Bolus Protocol IV ONE (21:34)
[2020-12-12] MEDS: METOPROLOL TARTRATE 25 MG TAB PO SCH (21:39)
[2020-12-12] MEDS: ASPIRIN 81 MG ECTAB PO SCH (21:39)
[2020-12-12] MEDS: ROSUVASTATIN CALCIUM 20 MG TAB PO SCH (21:39)
[2020-12-12] MEDS: lisinopril 20 MG TAB PO SCH (21:39)
[2020-12-12] MEDS ORDERED: PNEUMOCOCCAL Polysaccharide Vaccine 25mcg/0.5mL vial/Syr IM ONE (22:00)
[2020-12-13 00:17] LABS: Partial Thromboplastin Ratio 1.8; Partial Thromboplastin Time 48.1 Seconds (21.0-31.0)
[2020-12-13] MEDS: HEPARIN SODIUM/DEXTROSE 25,000 UNITS/500 ML BAG IV SCH ×2 (00:33→18:24)
[2020-12-13] MEDS: NITROGLYCERIN 2% OINTMENT 30GM TUBE EXT SCH ×4 (00:34→16:56)
[2020-12-13] MEDS: LEVOTHYROXINE SODIUM 75 MCG TABLET PO SCH (06:03)
[2020-12-13 07:37] LABS: Chol HDL Ratio 3; Cholesterol 97 mg/dl (0-200); HDL Cholesterol 33 mg/dl; LDL Cholesterol Calculated 49 mg/dl; Triglycerides 73 mg/dl (0-150); VLDL Cholesterol 15 mg/dl
[2020-12-13] MEDS: METOPROLOL TARTRATE 25 MG TAB PO SCH ×2 (09:02→21:13)
[2020-12-13] MEDS: PANTOprazole 40 MG TAB PO SCH (09:02)
[2020-12-13 09:24] LABS: Calcium 7.7 mg/dl (8.5-10.1); Creatinine Clr Calc Pharmacy 69.5 ml/min; Est GFR (African American) 79.3 ml/min; Est GFR (Non-African American) 68.4 ml/min; Potassium 3.9 mmol/L (3.5-5.1)
[2020-12-13 09:31] LABS: Troponin I 6.06 ng/ml (0-0.045)
--- NOTE | 2020-12-13 09:51 | XCELERA ---
[id number]
--- NOTE | 2020-12-13 11:42 | Cardiology Consultation ---
Date of Consultation December 13, 2020 Assessment & Plan (1) Non-ST elevation (NSTEMI) myocardial infarction: - total duration of his discomfort was 60-90 minutes. - agree with intravenous heparin and low-dose metoprolol tartrate. - cardiac catheterization tomorrow morning. - would consider urgent cardiac catheterization for her current symptoms. (2) CAD in [place] artery: - nonobstructive disease on catheterization August 2013 as described above. - cardiac catheterization tomorrow morning or urgently for recurrent symptoms. (3) HTN (hypertension): - adequate control on current regimen. (4) Hypercholesterolemia: - continue rosuvastatin. History of Present Illness Attending Physician: Navdeep Vincent History of Present Illness Mr. Hope is a 70-year-old male admitted yesterday with unstable angina pec toris. This consultation was ordered to assist in his cardiac management. Of note, the patient is followed by Dr. Stephens in the outpatient setting. The patient was in his usual state of health until yesterday afternoon. The patient was riding his mountain bike on some trails. He got to a very steep up hill trial an opted to walk is bike. He had the abrupt onset of substernal chest tightness with associated shortness of breath, fatigue, and bilateral arm paresthesias. The patient took 3 sublingual nitroglycerin tablets without a change in his symptoms. Fortunately, his son found him and called 911. The patient was brought to the emergency room still having symptoms. He received sublingual and topical nitrates with complete resolution of his discomfort. Total duration of his pain was 60-90 minutes. The patient does carry history of coronary artery disease and had a SRI placed in LAD ( 3.5 x 23 mm Xience) back in August of 2013. other disease included a 30% proximal LCx, 30% proximal RCA, and 30% mid RCA. The patient has done well from a cardiac perspective until that described above. Currently, patient is resting comfortably in bed without complaints. We have discussed the need for a cardiac catheterization tomorrow morning. Past medical and surgical history 1. Coronary artery disease -see above 2. LAD SRI - August 2013 3. Hypertension 4. hypercholesterolemia 5. GERD 6. Hypothyroidism 7. History of subarachnoid hemorrhage - 2007 8. Inguinal hernia repair 9. Tonsillectomy 10. Carpal tunnel release Social history and lives with his Retired No tobacco alcohol. Family history Mother at 96 from "old age. " Father at 76 from an IA. A brother developed coronary disease in his 60s. Review of systems A 10 point review systems was negative except for that described above. Allergies Allergy/AdvReac Type Severity Reaction Status Date / Time niacin AdvReac Mild Flushing Verified 12/12/20 16:35 Home Medications Medication Instructions Recorded Confirmed Type sildenafil (pulm.hypertension) 20 20 mg PO DAILY PRN #30 tab 03/04/20 12/12/20 Rx mg tablet nitroglycerin 0.4 mg sublingual 0.4 mg SL Q5M PRN #25 tab 06/03/20 12/12/20 Rx tablet aspirin 81 mg tablet,delayed 162 mg PO PM tab 12/08/20 12/12/20 History release coenzyme Q10 100 mg capsule (Co 100 mg PO PM 12/12/20 12/12/20 History Q-10) levothyroxine 75 mcg tablet 75 mcg PO QAM 12/12/20 12/12/20 History lisinopril 40 mg tablet 40 mg PO PM 12/12/20 12/12/20 History pantoprazole 40 mg tablet,delayed 40 mg PO QAM 12/12/20 12/12/20 History release rosuvastatin 40 mg tablet 40 mg PO PM 12/12/20 12/12/20 History Patient History Medical History (Updated 12/12/20 @ 20:56 by Navdeep Vincent) Benign essential hypertension CAD in [place] artery (09/18/13) 70% LAD lesion, s/p stent; 30% LCx, 30% RCA GERD without esophagitis Hypercholesterolemia Hypothyroidism Subarachnoid hemorrhage 2007 - did not require neurosurgical intervention Varicose vein of leg Surgical History (Updated 12/12/20 @ 20:33 by Navdeep Vincent) History of inguinal hernia repair History of left hip replacement History of throat surgery UPPP History of tonsillectomy Hx of carpal tunnel repair S/P coronary artery stent placement Family History Father Heart disease Brother Heart disease Uncle Coronary heart disease Paternal uncles x 2 Social History (Updated 12/12/20 @ 20:34 by Navdeep Vnicent) Smoking Status: Never smoker Second Hand Exposure: No; Hx Alcohol Use: No Hx Substance Use: No Preferred Language: Icelandic Communication Ability: Effective Hearing Ability: Normal Lens Inserter Required: No Beliefs That Will Affect Care: None marital status: Current Living Situation: Spouse Current Living Situation Comment: and Son current occupational status: retired current occupation: worked as radiation therapist, 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 HEENT exam is negative. Neck is supple with full carotid upstrokes. There are no carotid bruits. Jugular venous pressure is flat at 90. There is no thyromegaly. Cardiovascular exam reveals a regular rhythm with a normal S1 and S2. No S3, S4, or murmurs are noted. Lungs are clear without rales, rhonchi, or wheezes. Abdomen is soft and nontender without bruits. Extremities reveal intact radial artery and posterior tibial pulses bilaterally. There is no peripheral edema. Results & Data ([facility]) Vital Signs (Past 12 Hours) Vital Signs Temp Pulse Pulse Resp BP Pulse Ox 12/13/20 09:12 53 L 12/13/20 07:29 36.7 C 59 L 18 110/63 96 12/13/20 03:35 37.0 C 54 L 18 90/51 L 96 Laboratory Results CBC notes hemoglobin of 14.7, hematocrit 43.6, white count 11.17, and platelet count [id number]. Electrolytes note a sodium of 138, potassium 3.8, chloride 111, bicarb 20, BUN 20, creatinine 1.27, and glucose of 96. Initial troponin was 0.236 with follow-up values of 6.44 and 9.81. LDL cholesterol is 49 with an HDL low at 33. Diagnostic Findings EKG notes sinus bradycardia with premature atrial contractions and incomplete right bundle branch block. Echocardiogram notes normal left ventricular systolic function without wall motion abnormalities. Left ventricular ejection fraction is 55-60%. There was mild LVH, mild mitral regurgitation, and mild tricuspid regurgitation. Chest x-ray shows cardiomegaly but no acute disease. CT scan of the chest was negative for a pulmonary embolism. PG Care Time/CCT Total # of Minutes Spent Total Time Spent with Patient: Total time spent is greater than 50% in coordination of care (as documented) at patient's floor/unit and/or counseling patient: Coding Level of Care Code 26678 Inpt Consult Level 5 Diagnoses Non-ST elevation (NSTEMI) myocardial infarction I21.4 CAD in [place] artery I25.10 HTN (hypertension) I10 Hypercholesterolemia E78.00
--- NOTE | 2020-12-13 13:19 | Electrocardiogram Report ---
Test Reason : Blood Pressure : / mmHG Vent. Rate : 072 BPM Atrial Rate : 072 BPM P-R Int : 150 ms QRS Dur : 122 ms QT Int : 446 ms P-R-T Axes : 045 043 001 degrees QTc Int : 488 ms Poor data quality, interpretation may be adversely affected Normal sinus rhythm Right bundle branch block Abnormal ECG When compared with ECG of 12-DEC-2020 14:47, (unconfirmed) No significant change Confirmed by Nik Hopkins ([id number]) on 12/13/2020 1:19:27 PM Referred By: REFERRED SELF Confirmed By:Nik Hopkins
--- NOTE | 2020-12-13 13:19 | Electrocardiogram Report ---
Test Reason : Blood Pressure : / mmHG Vent. Rate : 072 BPM Atrial Rate : 072 BPM P-R Int : 136 ms QRS Dur : 138 ms QT Int : 448 ms P-R-T Axes : 055 054 007 degrees QTc Int : 490 ms Normal sinus rhythm Possible Left atrial enlargement Right bundle branch block Abnormal ECG When compared with ECG of 19-SEP-2013 06:58, QRS duration has increased QT has lengthened Confirmed by Nik Hopkins ([id number]) on 12/13/2020 1:18:41 PM Referred By: REFERRED SELF Confirmed By:Nik Hopkins
--- NOTE | 2020-12-13 13:31 | Electrocardiogram Report ---
Test Reason : Blood Pressure : / mmHG Vent. Rate : 059 BPM Atrial Rate : 059 BPM P-R Int : 148 ms QRS Dur : 128 ms QT Int : 472 ms P-R-T Axes : 056 070 028 degrees QTc Int : 467 ms Sinus bradycardia with Premature supraventricular complexes Right bundle branch block Abnormal ECG When compared with ECG of 12-DEC-2020 21:04, (unconfirmed) Premature supraventricular complexes are now Present Confirmed by Nik Hopkins ([id number]) on 12/13/2020 1:30:45 PM Referred By: REFERRED SELF Confirmed By:Nik Hopkins
[2020-12-13] MEDS: ROSUVASTATIN CALCIUM 20 MG TAB PO SCH (21:13)
[2020-12-13] MEDS: lisinopril 20 MG TAB PO SCH (21:13)
[2020-12-13] MEDS: ASPIRIN 81 MG ECTAB PO SCH (21:13)
--- NOTE | 2020-12-13 21:34 | Hospitalist Progress Note ---
Date of Service December 13, 2020 Assessment & Plan (1) Non-ST elevation (NSTEMI) myocardial infarction: Plan: Peak troponin 9.8 & trending down. No CV symptoms since the ER at admission. Tele and EKG stable. Echo with preserved EF; no obvious WMA. Although he is bradycardic at rest will continue low-dose metoprolol 12.5mg BID given the NSTEMI. Will need to make decision about continuing this upon discharge. Cont asa. Cont heparin drip. Cont MICHELLE. Cont statin - LDL 49. Cont topical nitrates. Cath in 2013 -- 30% RCA, 30% LCx, 70% LAD s/p stent. NPO after MN tonight. Cath in am by Dr Lopez. (2) CAD in [place] artery: Plan: Previous heart catheterization was in 08/2013. This demonstrated a 70% LAD lesion, 30% LCx lesion and a 30% RCA stenosis. He underwent stent to the LAD lesion. Now with NSTEMI - see above. (3) HTN (hypertension): Plan: Controlled with lower lisinopril dose of 20mg daily (had been on 40mg at home). Remains on topical nitrates without headache. Continue metoprolol 12.5mg BID. (4) Hypercholesterolemia: Plan: Lipids well controlled with LDL 49. Continue statin. (5) Hypothyroidism: Plan: TSH wnl. Continue synthroid. (6) GERD without esophagitis: Plan: Continue PPI. (7) History of subarachnoid hemorrhage: Plan: Spontaneous. 2007. Occurred after he had forcibly sneezed. Did not require surgical intervention. Benefits of systemic heparin for his NSTEMI outweigh the very small risk of re- development of a spontaneous SAH. no headaches or other symptoms to suggest an ICH. (8) RBBB: Plan: New. Continue telemetry monitoring. (9) Dizziness: Plan: Resolved. Occurred at the time of his NSTEMI. He had been bike riding - may have been volume contracted. Decreased perfusion in the setting of his NSTEMI likely contributed. Nitro x 3 SL likely dropped his BPs as well. Has not recurred. Plan: FEN - allow AHA diet, then NPO after MN tonight. updated by phone this evening. Admission and Anticipated Discharge Date Admission Date: December 12, 2020 Subjective had decent night. no chest pressure/pain/tightness. no dyspnea. no dizziness or lightheadedness. tele - NSR, with periods of sinus luz (transient) into the 40s at rest. feels much better than yesterday. Review of Systems Constitutional: no fever and no chills Respiratory: no cough, no chest congestion, no dyspnea and no dyspnea on exertion Cardiovascular: no chest pain, no orthopnea and no edema Gastrointestinal: no abdominal pain, no nausea and no vomiting Physical Exam Constitutional: well developed and well nourished; no acute distress and no altered mental status ENMT: external ear and nose normal, oropharynx normal Respiratory: normal respiratory effort, lungs clear to auscultation Cardiovascular: Rate/Rhythm: regular rhythm and + bradycardic Heart Sounds: normal S1 and normal S2; no murmur Vessels: posterior tibial pulses present and dorsalis pedis pulses present; no JVD Extremities: no edema Gastrointestinal (Abdomen): normal bowel sounds, soft, nontender, no hepatosplenomegaly Skin: no rashes, warm and dry Psychiatric: A+Ox3, euthymic affect Results & Data Results & Data ([facility]) Vital Signs (Past 12 Hours) Vital Signs Temp Pulse Pulse Resp BP Pulse Ox 12/13/20 19:20 36.8 C 65 18 119/64 96 12/13/20 15:24 37.1 C 64 20 119/63 98 12/13/20 15:00 75 12/13/20 11:37 36.8 C 53 L 18 108/72 96 Laboratory Results Laboratory Results - last 24 hr 12/12/20 12/13/20 12/13/20 23:50 00:27 06:48 APTT 48.1 H* PTT Ratio 1.8 Sodium Potassium Chloride Carbon Dioxide Anion Gap BUN Creatinine Est Cr Clr Drug Dosing Est GFR ( Amer) Est GFR (Non-Af Amer) BUN/Creatinine Ratio Glucose Estimat Average Glucose Pending Hemoglobin A1c Pending Calcium Troponin I 9.810 H* Triglycerides Cholesterol LDL Cholesterol, Calc VLDL Cholesterol, Calc HDL Cholesterol Cholesterol/HDL Ratio 12/13/20 12/13/20 06:48 08:47 APTT PTT Ratio Sodium 141 Potassium 3.9 Chloride 112 H Carbon Dioxide 27 Anion Gap 2.0 L BUN 19 H Creatinine 1.09 Est Cr Clr Drug Dosing 69.5 Est GFR ( Amer) 79.3 Est GFR (Non-Af Amer) 68.4 BUN/Creatinine Ratio 17.0 Glucose 90 Estimat Average Glucose Hemoglobin A1c Calcium 7.7 L Troponin I 6.060 H* Triglycerides 73 Cholesterol 97 LDL Cholesterol, Calc 49 VLDL Cholesterol, Calc 15 HDL Cholesterol 33 Cholesterol/HDL Ratio 3 Diagnostic Findings echo - EF 60-65%; normal wall motion; no significant valvular disease PG Care Time/CCT Total # of Minutes Spent Total Time Spent with Patient: Total time spent is greater than 50% in coordination of care (as documented) at patient's floor/unit and/or counseling patient: Coding Level of Care Code 13935 Subseq Hosp Care Lvl 2 Diagnoses Non-ST elevation (NSTEMI) myocardial infarction I21.4 CAD in [place] artery I25.10 HTN (hypertension) I10 Hypercholesterolemia E78.00 Hypothyroidism E03.9 GERD without esophagitis K21.9 History of subarachnoid hemorrhage Z86.79 RBBB I45.10 Dizziness R42
[2020-12-14] MEDS: NITROGLYCERIN 2% OINTMENT 30GM TUBE EXT SCH ×2 (05:24→06:02)
[2020-12-14] MEDS: LEVOTHYROXINE SODIUM 75 MCG TABLET PO SCH (05:58)
[2020-12-14 06:52] LABS: BUN Creatinine Ratio 14.8 (10-20); Calcium 7.9 mg/dl (8.5-10.1); Creatinine Clr Calc Pharmacy 71.1 ml/min; Est GFR (African American) 81.1 ml/min
[2020-12-14] MEDS: METOPROLOL TARTRATE 25 MG TAB PO SCH (07:31)
[2020-12-14] MEDS: PANTOprazole 40 MG TAB PO SCH (07:31)
[2020-12-14 07:37] LABS: Estimated Average Glucose 120 mg/dl; Hemoglobin A1C 5.8 % (4.5-5.6)
[2020-12-14] MEDS ORDERED: HEPARIN (PORCINE) 1000 UNIT/ML 10 ML (CATH LAB USE ONLY) ONE (08:00)
[2020-12-14] MEDS ORDERED: niCARdipine HCL INJ 2.5 MG/ML 10 ML AMP ONE (08:00)
[2020-12-14] MEDS ORDERED: MIDAZOLAM HCL 1 MG/ML 2ML VIAL ONE (08:00)
[2020-12-14] MEDS ORDERED: fentaNYL citrate 100 MCG/2 ML VIAL ONE (08:00)
[2020-12-14] MEDS ORDERED: NITROGLYCERIN/D5W 100MCG/ML 20ML SYR ONE (08:01)
--- NOTE | 2020-12-14 08:26 | Pre Anesthesia Assessment ---
Date of Service December 14, 2020 Pre Sedation Assessment Vital Signs Temp Pulse Pulse Resp BP Pulse Ox 12/14/20 08:12 98.2 F 58 L 20 140/81 98 12/14/20 07:30 97.9 F 60 16 148/71 H 98 12/14/20 03:05 98.4 F 54 L 18 111/65 95 12/13/20 23:50 65 12/13/20 23:07 99.0 F 68 19 115/62 95 12/13/20 19:20 98.2 F 65 18 119/64 96 12/13/20 15:24 98.8 F 64 20 119/63 98 12/13/20 15:00 75 12/13/20 11:37 98.2 F 53 L 18 108/72 96 12/13/20 09:12 53 L Cardiovascular RRR, no murmur, no edema Respiratory normal respiratory effort, lungs clear to auscultation Pre-Sedation Airway Assessment Smoking Status: Never smoker Hx Sleep Apnea: No Hx Difficult Intubation: No Short, Thick Neck: No Thyromental Distance: > or= 3.5 Finger Breadths Oral Cavity: + WNL Mallampati Class: II ASA: ASA2 NPO Status Date of Last Intake of Fluids: 12/13/20 Time of Last Intake of Fluids: 22:00 Date of Last Intake of Solid Food: 12/13/20 Time of Last Intake of Solid Foods: 22:00 Procedure Planning Contraindications for Sedation: none Current Medications Reviewed: Yes Notes The planned sedation has been discussed with the patient. Informed Consent was obtained. I have identified the patient, determined the appropriateness of sedation and have assessed the patient immediately prior to the procedure. All medicine(s) and interventions are by my order.
[2020-12-14 08:37] LABS: Partial Thromboplastin Time 51.9 Seconds (21.0-31.0)
[2020-12-14] MEDS ORDERED: ADENOSINE IV SOLN 3 MG/ML 20 ML VIAL IV ONE (09:05)
[2020-12-14] MEDS ORDERED: CLOPIDOGREL BISULFATE 300 MG TAB ONE (09:45)
--- NOTE | 2020-12-14 09:54 | Cardiac Catheterization ---
[facility] Data: Shared Services Manager Cardiac Status Clinical evaluation leading to the procedure CAD Presenation: Non STEMI Anginal Classification: CCS IV Heart Failure: No Cardiogenic Shock within 24 Hours: No Cardiac Arrest within 24 Hours: No Imaging Studies Past 6 Months: Yes Stress Studies Past 6 Months: No Diagnostic Physicians Name: James Lopez MD Status: Elective Closure Device Percutaneous Entry Location: Radial Closure Device: Radial Band Recommendations: Medical Therapy and/or Counseling Intraprocedure Events Significant Disection: No Perforation: No Cardiac Cath Procedure Full Procedure Date December 14, 2020 Pre-Procedure Diagnosis Pre-Procedure Diagnosis: Non STEMI AUC Score AUC Score: 8 Post-Procedure Diagnosis Post-Procedure Diagnosis: Moderate CAD and Elevated Intracardiac Pressures Procedure(s) Performed Procedure(s) Performed: Coronary Angiography, Left Heart Cath, IVUS and Fractional Flow [employer] James Lopez MD [facility] Director(s) Showers Estimated Blood Loss Estimated Blood Loss: 10 Medication(s) Medication(s): Adenosine, Clopidogrel, Fentanyl, Heparin, Lidocaine 1%, Nicardipine, Nitroglycerin and Versed Summary of Findings Indication: NSTEMI. History of CAD post prior proximal LAD stent 2014 Access: 6 Fr right radial artery Catheters: [place], diagnostic JL 3.5, pigtail, JR4 guide, JL 3.5 guide Findings: LM -normal caliber, distal luminal irregularities LAD -medium caliber, proximal stent widely patent, latemid LAD with 50% stenosis and myocardial bridging, distal vessel without significant disease and wraps around apex. Small to medium D3 50 to 60% proximal. Circumflex -medium caliber, 50% ostial stenosis, mild proximal disease extending into large OM1. RCA -large caliber vessel, dominant, 60% earlymid. PDA without significant disease. Small distal PLB with mild disease. LVEDP -22 FFR of RCA: -RCA cannulated with JR4 guide -BMW wire placed into distal right PLB -ACIST Catheter placed across stenosis -Pd/Pa 0.96 -FFR 0.85 -Coronary angiography revealed no apparent complications post wire/catheter removal FFR of ostial circumflex: -Left main cannulated with JL 3.5 guide -Health Information Clerk 50 wire placed into distal OM1 -ACIST Catheter placed across stenosis -Pd/Pa 1.0 -Coronary angiography revealed no apparent complications post wire/catheter removal FFR/IVUS of LAD: -Health Information Clerk 50 wire redirected into distal LAD -ACIST Catheter placed across stenosis -Pd/Pa 0.88 -FFR 0.72 FFR catheter removed, GradeStack IVUS catheter placed into distal LAD IVUS pullback revealed moderate, mildly calcified disease in the midsegment (MLA 3.1 mm), no significant proximal stent in-stent restenosis, no significant left main disease. -Coronary angiography revealed no apparent complications post wire/catheter removal Arterial Closure: TR band Summary: 1. Moderate multivessel coronary artery disease. Widely patent proximal LAD stent. 50% latemid LAD with myocardial bridging (FFR 0.72, moderate disease by IVUS) 50% ostial circumflex (iFR 1.0) 60% earlymid RCA (FFR 0.85) Recommendations: No high risk CAD on angiography/invasive testing. FFR across latemid LAD stenosis positive but only moderate disease on IVUS and suspect FFR in part secondary to myocardial bridging. Plan to medically manage moderate multivessel disease. Suspect presentation/troponin elevation related to transient small branch vessel disease (?D3) or vasospasm. Loaded with clopidogrel in Shared Services Manager Maximize antianginal therapy. Continue ASCVD risk factor modification Hemodynamics Rest Ao:: 116/66/87 Final Ao: 128/64/86 LV: 115/22 Recommendations Recommendations: Medical Therapy and/or Counseling Specimens Specimens: None Radiation Exposure (mGy) 1992 Contrast (mls) 95 Fluids (cc crystalloids) Fluids (cc crystalloids): 140 Anesthesia moderate [id number] Procedural Complication(s) None Disposition PCU I attest to the content of the Intraoperative Record and any orders documented therein. Any exceptions are noted below. citizenmadeG Card Cath Procedure Codes Cardiac Catheterization Procedure 1: Cardiovascular Cath Procedures: 57040 Coronaries and LHC (+/-LV) Procedure 2: Cardiovascular Cath Procedures: 87389 (Doppler) Pressure Wire Procedure 3: Cardiovascular Cath Procedures: 41835 (Doppler) Pressure Wire Addl vessel Procedure 4: Cardiovascular Cath Procedures: 92873 (Doppler) Pressure Wire Addl vessel Therapeutic Services & Ancillary Proc Procedure 1: Cardiovascular Tx and Anc Procedures: 79870 IV Ultrasound (Coronary or Graft) Moderate Sedation Procedure 1: Sedation/Anesthesia: 59298 Mod Sedation by the same physician;Init15 Min Child Age 5 & Up Procedure 2: Sedation/Anesthesia: 82586 Mod Sedation by the same physician; Ea [id number] Minutes PG Care Time/CCT Total # of Minutes Spent Total Time Spent with Patient: Total time spent is greater than 50% in coordination of care (as documented) at patient's floor/unit and/or counseling patient:
--- NOTE | 2020-12-14 09:54 | Post Anesthesia Assessment ---
Date of Service December 14, 2020 Post Sedation Assessment Vital Signs Temp Pulse Pulse Resp BP Pulse Ox 12/14/20 08:12 98.2 F 58 L 20 140/81 98 12/14/20 08:00 53 L 12/14/20 07:30 97.9 F 60 16 148/71 H 98 12/14/20 03:05 98.4 F 54 L 18 111/65 95 12/13/20 23:50 65 12/13/20 23:07 99.0 F 68 19 115/62 95 12/13/20 19:20 98.2 F 65 18 119/64 96 12/13/20 15:24 98.8 F 64 20 119/63 98 12/13/20 15:00 75 12/13/20 11:37 98.2 F 53 L 18 108/72 96 Recovery Score Activity: Moves 4 extremities Respiration: Deep Breath/Cough Circulation: +/-20% PreAnes Value Consciousness: Fully Awake Oxygen Saturation: O2 needed for >90% Discharge Sedation Level of Care: Fast Track Phase II Post Sedation Plan On clinical assessment, the patient appears to have tolerated the sedation without complications. Patient is recovering as anticipated. Patient will continue to be monitored by nursing and may be discharged when sedation discharge criteria are met per below protocol. Upon Completions of procedure up to 15 minutes continue every 5 minute vital signs and the P.A.R. score; then discharge to a Phase I or Fast Track to Phase II per the following guidelines: * Discharge Patient to appropriate Phase II area if PAR is 8 or greater or return to pre- procedure baseline. The post - procedure orders will be as directed. * If PAR score is less than 8 or not return to pre-procedure baseline then patient will follow Phase I monitoring till PAR is reached for Phase II. The Phase I may be done in procedure room or may call to secure a Phase I area. * If naloxone or flumazenil are used for reversal, hold in Phase I for continued monitoring from when last reversal dose was given for a minimum of 60 minutes or longer pending the nurse and/or physician discretion of patient condition before discharge to Phase II. Please call the Sedation Physician to re-evaluate and complete post-note for discharge to Phase II area. Do NOT discharge from procedure sedation or Phase 1 until post- sedation evaluation note is complete by procedure /sedation MD Sedation Discharge Instructions to be given to the patient at discharge to home.
[2020-12-14] MEDS ORDERED: ISOSORBIDE MONO EXTENDED REL 30 MG TABCR PO SCH (10:15)
--- NOTE | 2020-12-14 13:00 | Electrocardiogram Report ---
Test Reason : Blood Pressure : / mmHG Vent. Rate : 063 BPM Atrial Rate : 063 BPM P-R Int : 154 ms QRS Dur : 130 ms QT Int : 426 ms P-R-T Axes : 055 055 007 degrees QTc Int : 435 ms Normal sinus rhythm Possible Left atrial enlargement Right bundle branch block Abnormal ECG When compared with ECG of 12-DEC-2020 15:59, ST no longer depressed in Anterior leads QT has shortened Confirmed by Nik Hopkins ([id number]) on 12/14/2020 12:59:56 PM Referred By: REFERRED SELF Confirmed By:Nik Hopkins
--- NOTE | 2020-12-14 17:29 | Discharge Summary ---
Date of Service December 14, 2020 Admission HPI Per Admitting Provider Very pleasant 70yo male with known CAD, s/p LAD stent in August 2013, hyperlipidemia, HTN, and hypothyroidism presents via EMS with 60+ minutes of chest tightness, shortness of breath, bilateral arm numbness, nausea, dizziness, and anxiety. Patient states he is an avid bike rider and was out on some bike trails at [place] with his son. There was a steep incline to reach a trail and he decided to get off his bike and walk up the hill. While he was walking he states he suddenly lost his energy, then developed chest tightness over the sternal region, significant shortness of breath, and felt dizzy. The symptoms persisted and he sat on the ground. He fortunately had his bottle of nitroglycerin with him and took 3 SL nitros. This did NOT relieve any of his symptoms. At its peak the chest tightness was 9/10 on a pain scale. Following the nitroglycerin he felt more dizzy than prior. He sat on the ground in that location for about 30 minutes and his son ultimately caught back up with him. His son called 911. While waiting for EMS his symptoms persisted. About 30 minutes later EMS finally got to him and brought him to [facility]. In the ambulance he was given IV fluids and aspirin. Then, upon arrival at [facility], additional nitrates in the form of nitropaste was given along with morphine and ativan. Troponin was elevated, and he was started on a heparin drip. During my assessment he was initially a 2/10 in terms of chest tightness, and by the time I examined him he was 0/10. Patient states that up until today he has otherwise been feeling well. Recent prior bike rides were not limited in any way - specifically he had no chest pain or dyspnea during prior bike excursions. Patient denies prior h/o VT. In 2013 he had a stress test due to severe fatigue. His stress was positive which prompted a heart cath. Heart cath showed a 70% LAD lesion, and 30% lesions in the RCA and left circumflex. LAD stent was placed at that time. Last stress test was in 2019 and was negative for ischemia. Of note - patient is fully vaccinated against COVID-19. Admission Exam Per Admitting Provider Constitutional: well developed and well nourished; no acute distress and no altered mental status Eyes: PERRL, conjunctivae normal, anicteric sclerae ENMT: external ear and nose normal, oropharynx normal Ears: + unable to visualize TM (right - 2nd cerumen ); no TM abnormality (left) Neck: trachea midline, no thyromegaly Respiratory: normal respiratory effort, lungs clear to auscultation Cardiovascular: RRR, no murmur, no edema Heart Sounds: normal S1 and normal S2 Vessels: posterior tibial pulses present, dorsalis pedis pulses present and radial pulses present (symmetric b/l ); no JVD Chest (Breasts): Chest: normal inspection of chest Additional Comments: no reproducible chest wall pain Gastrointestinal (Abdomen): normal bowel sounds, soft, nontender, no hepatosplenomegaly Musculoskeletal: no cyanosis or clubbing, extremities motor strength 5/5 Skin: no rashes, warm and dry Neurologic: deep tendon reflexes 2+ bilaterally and moves all extremities Psychiatric: Orientation: alert and oriented x 3 Lymphatic: no cervical lymphadenopathy Principal Diagnosis NSTEMI Discharge Exam Constitutional WD/WN, vitals as above ENMT external ear and nose normal, oropharynx normal Neck trachea midline, no thyromegaly Respiratory normal respiratory effort, lungs clear to auscultation Cardiovascular Rate/Rhythm: regular rhythm and + bradycardic Heart Sounds: no murmur Extremities: normal capillary refill; no calf tenderness and no pedal edema Gastrointestinal (Abdomen) normal bowel sounds, soft, nontender, no hepatosplenomegaly Musculoskeletal no cyanosis or clubbing, extremities motor strength 5/5 Discharge Data Allergies Allergy/AdvReac Type Severity Reaction Status Date / Time niacin AdvReac Mild Flushing Verified 12/22/20 08:42 Consultations 12/12/20 17:19 ED Decision to Admit Stat 12/12/20 20:51 Consult Cardiology Routine Procedures Performed Operation Date: 12/14/20 07:55 Actual Procedures p Cineradiography w/Routine Exam - Sandip Lopez MD p Cath, Left with Cors and Vent - Sandip Lopez MD s Fraction Flow [place] SGL Ves - Sandip Lopez MD s Fraction Flow [place] Addl Ves - Sandip Lopez MD s IVUS Coronary Single Vessel - Sandip Lopez MD Ordered Studies 12/12/20 15:01 CT angio chest PE protocol Stat 12/14/20 07:57 CL Cath Imgs for PACS use only Routine 12/14/20 09:55 CL IVUS Coronary Single Vessel Routine Hospital Course (1) Non-ST elevation (NSTEMI) myocardial infarction: (2) CAD in [place] artery: (3) HTN (hypertension): (4) Hypercholesterolemia: (5) Hypothyroidism: (6) GERD without esophagitis: (7) History of subarachnoid hemorrhage: (8) RBBB: (9) Dizziness: Yovani Hope is a 70 year old male admitted at [facility] from December 12-2020 due to chest tightness and shortness of breath. He was diagnosed with an NSTEMI with troponin I elevation to 9.81ng/ml. This was initially treated medically with resolution of his symptoms and subsequently underwent non-emergent cardiac catheterization by Dr Lopez on December 14, 2020. This showed no moderate multivessel coronary artery disease but no high risk or culprit disease on catheterization that required stent placement or surgery. Suspect NSTEMI secondary to transient small branch disease vs. vasospasm. Recommendation is to maximize cardiovascular and anti-anginal disease medication. He has been started back on clopidogrel (duration of which to be determined by your outpatient galley boy). Started isosorbide mononitrate. Lisinopril reduced to 20mg PO daily to enable blood pressure while starting ISMN. Unfortunately bradycardia limits starting any metoprolol at this time. He should not take sildenafil until follow up with his galley boy. Total Time Total Time Spent Total Time Spent (In Minutes): 40 Discharge Plan Discharge Items Patient Disposition: Home - Self-Care Reason For Visit: NSTEMI Discharge Diagnosis: Heart attack (NSTEMI) Activity: Per Instructions section Non-emergency contact: [employer] Call non-emergency contact if: you have any medication questions and your symptoms worsen Follow-up/Referrals: Silas Stephens MD [Physician] - (2-4 weeks) Rodolfo Jackson MD [Primary Care Provider] - (No follow up required) Diet: Heart Healthy Addtl Attending Provider Instructions: You were admitted at [facility] from December 12-2020 due to chest tightness and shortness of breath. You were diagnosed with a heart attack called an NSTEMI (non-ST elevated myocardial infarction). This was initially treated medically with resolution of your symptoms and you underwent subsequent cardiac catheterization on December 14, 2020. This showed no moderate multivessel coronary artery disease but no high risk or culprit disease on catheterization that required stent placement or surgery. Suspect heart attack was secondary to transient small branch disease vs. vasospasm. Recommendation is to maximize cardiovascular and anti-anginal disease medication. Therefore you have been started back on clopidogrel (duration of which to be determined by your outpatient galley boy). Start on isosorbide mononitrate (anti-anginal). Go back to your prior 20mg PO daily lisinopril dose while starting this nedDue to low heart rate you were not restarted on metoprolol. Please do not take sildenafil until follow up with your galley boy. Kind regards, Dr Navdeep Rai Addtl Instructional Technology Specialist Provider Instructions: ACTIVITY RECOMMENDATIONS: Excess manipulation of the wrist should be avoided for the next 24-48 hours. * No lifting over 2 pounds (approximately a 1/2 gallon of milk) with the utilized arm for 24 hours. * No strenuous activity such as bowling or tennis for 3 days. * Keep the site of the procedure covered with a bandage for 24 hours. *You may shower the day after the procedure. Do not take a tub bath or submerge the puncture site in water for the next 3 days. *Do not operate any motorized equipment for 3 days. SPECIAL CARE INSTRUCTIONS: The site may be slightly bruised and sore following your procedure. Should any of the following occur, contact the Dr. who performed your procedure. 1. Redness/inflammation, swelling, chills, or fever, or colored drainage at procedure site within 3-7 days after your procedure. 2. Coldness, discoloration, ongoing numbness, severe pain, or swelling. Expect mild tingling of hand and tenderness at the puncture site for up to three days. If this persists beyond three days, or other symptoms develop, notify the Dr. who performed your procedure. BLEEDING: If the procedure site on your wrist begins to bleed, do not panic 1. Place 1 or 2 fingers firmly just slightly above the insertion site to stop the bleeding. You may be able to feel your pulse as you hold pressure. 2. Lift your finger after 5 minutes to see if the bleeding has stopped. 3. Once the bleeding has stopped, gently wipe the wrist area clean with a bandage. * If the bleeding from your wrist does not stop after 10 minutes, or if there is a large amount of bleeding or spurting, call 911 (do not drive yourself to the hospital). SKIN IRRITATION: * You may experience some redness and/or swelling in the area where radiation was administered. If any skin irritation occurs, please contact your family physician. FOLLOW UP VISIT: Keep any scheduled doctor appointments. Pending Studies at Discharge: No Stand-Alone Forms: My [facility], Smoking Cessation Medications and DC Order Prescriptions: New lisinopril 20 mg Tablet 20 mg PO PM Qty: 30 RF: 0 isosorbide mononitrate 30 mg Tablet Extended Release 24 Hr 30 mg PO QAM Qty: 30 RF: 0 clopidogrel 75 mg tablet 75 mg PO DAILY Qty: 30 RF: 0 Continued levothyroxine 75 mcg tablet 75 mcg PO QAM RF: 0 pantoprazole 40 mg tablet,delayed release (DR/EC) 40 mg PO QAM RF: 0 coenzyme Q10 [Co Q-10] 100 mg capsule 100 mg PO PM RF: 0 rosuvastatin 40 mg tablet 40 mg PO PM RF: 0 Changed aspirin 81 mg tablet,delayed release (DR/EC) 81 mg PO PM Qty: 0 RF: 0 Discontinued sildenafil (pulm.hypertension) 20 mg tablet 20 mg PO DAILY PRN (Reason: sexual activity) Qty: 30 RF: 11 lisinopril 40 mg tablet 40 mg PO PM RF: 0 No Action nitroglycerin 0.4 mg tablet, sublingual 0.4 mg SL Q5M PRN (Reason: chest pain) Qty: 25 RF: 3 Discharge Orders: Discharge Order (Routine); Ordered 12/14/20 Ordered By: Navdeep Kaplan/Other Patient Handouts: Having Cardiac Catheterization, Your Heart Is at Risk, Warning Signs of a Heart Attack Admission Data Admit Date/Time: 12/12/20 18:19 Attending Provider: Navdeep Rai Admit Provider: Navdeep Vincent Primary Care Provider: Rodolfo Jackson Other Providers: Navdeep Vincent ; Colten Avila Other Interventions: Discharge Summary Assessment (RN) Last Done: 12/14/20 18:21 Coding Level of Care Code D/C DAY MANAGEMENT >30 MINS Diagnoses Non-ST elevation (NSTEMI) myocardial infarction I21.4 CAD in [place] artery I25.10 HTN (hypertension) I10 Hypercholesterolemia E78.00 Hypothyroidism E03.9 GERD without esophagitis K21.9 History of subarachnoid hemorrhage Z86.79 RBBB I45.10 Dizziness R42
[2020-12-15] MEDS ORDERED: CLOPIDOGREL BISULFATE 75 MG TAB PO SCH (09:00)
== END 2020-12-14 18:23 | disposition home or self-care (01) | DRG 282 ==
LOC: ED 14:46 → 2S 18:19 → SUATTDRO 18:19 → 2S 20:16